=== PATIENT | male | born 1990 | race Two or more races ===

== ENCOUNTER 2021-06-18 11:35 | Emergency (ER) | payer OTHER ==
[~2021-06-18] VITALS: Ht 175.3 cm; Wt 63.5 kg
[2021-06-18 11:41] VITALS: BP 132/74
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
[2021-06-18] MEDS ORDERED: IBUPROFEN 600 MG TABLET ONE (13:54)
[2021-06-18] MEDS ORDERED: TDAP [DIPH/PERTUSSIS/TET] 0.5 ML VIAL IM ONE ×2 (13:55→14:00)
[2021-06-18] MEDS ORDERED: IBUPROFEN 600 MG TABLET PO ONE (14:00)
--- NOTE | 2021-06-18 14:06 | NUR ---
Patient discharged WITH [employer]. Written and verbal after care instructions given. Patient verbalizes understanding of instruction. PT ambulatory with a steady gait
== END 2021-06-18 14:10 ==
LOC: ER 11:42
DX: S22.32XA Fracture of one rib, left side, initial encounter for closed fracture (principal); S39.012A Strain of muscle, fascia and tendon of lower back, initial encounter; S60.812A Abrasion of left wrist, initial encounter; S60.811A Abrasion of right wrist, initial encounter; X58.XXXA Exposure to other specified factors, initial encounter; Y93.89 Activity, other specified; Y92.89 Other specified places as the place of occurrence of the external cause; Y99.8 Other external cause status
CPT/HCPCS: 71100-TC; 72100-TC; 90715